=== PATIENT | male | born 1975 | race Caucasian/White ===

== ENCOUNTER 2024-01-24 14:43 | Emergency (ER) | payer BC, SELFPAY ==
[2024-01-24 14:49] VITALS: BP 135/83
[2024-01-24 15:08] LABS: % Basophils 0.7 % (0-2); % Eosinophils 0.3 % (0-6); % Immature Granulocytes 0.3 % (0-0.5); % Lymphocytes 13.2 % (20.5-51.1); % Monocytes 5.2 % (1.7-9.3); % Neutrophils 80.3 % (42.2-75.2); Absolute Lymphocytes 0.8 10^3/uL (1.2-3.4); Absolute Monocytes 0.3 10^3/uL (0.1-0.6); Absolute Neutrophils 4.9 10^3/uL (1.4-6.5); Hematocrit 39.7 % (39.0-52.0); Hemoglobin 13.8 g/dL (13.0-18.0); Mean Corp Hgb Conc. 34.8 g/dL (33.0-37.0); Mean Corpuscular Hgb 32.3 pg (27.0-31.0); Mean Platelet Volume 9.2 fL (7.4-10.4); Nucleated Red Blood Cells % 0 % (-); Platelet Count 200 10^3/uL (130-400); Red Blood Cell Count 4.27 10^6/uL (4.70-6.10); Red Cell Dist. Width 12.4 % (11.5-14.5); White Blood Cell Count 6.1 10^3/uL (4.8-10.8)
[2024-01-24 15:32] LABS: ALT (SGPT) 40 U/L (0-50); AST (SGOT) 45 U/L (17-59); Albumin 4.5 g/dl (3.5-5.0); Alkaline Phosphatase 59 U/L (38-126); Blood Urea Nitrogen 18 mg/dl (9-20); Calcium 9.5 mg/dl (8.4-10.2); Carbon Dioxide 26 mmol/L (22-30); Chloride 104 mmol/L (98-107); Glucose 94 mg/dl (70-99); Lipase 38 U/L (23-300); Total Bilirubin 0.5 mg/dl (0.2-1.3); eGFR > 60.00
[2024-01-24 15:42] LABS: Potassium 4.9 mmol/L (3.5-5.1); Sodium 137 mmol/L (135-145)
[2024-01-24] MEDS: ZOFRAN 4 MG IV (17:14)
[2024-01-24] MEDS: NSS 1000 IV (17:17)
--- NOTE | 2024-01-24 17:17 | ED.GENMED ---
History of Present Illness
General
Chief Complaint: Abdominal Pain
Source: patient
Exam Limitations: none
Time Seen by Provider: 01/24/24 17:13
Travel History
Have you had any contact with someone who has COVID-19?: No
Do you have any symptoms of coronavirus? Fever > 100 degrees, chills, cough, shortness of breath, sore throat, loss of taste or smell, muscle aches, or headache?: No
History of Present Illness
History of Present Illness:
See MDM
Past History
Past History
ED Past Medical History: None
ED Past Surgical History: None
Social History
Tobacco: Non-smoker
Alcohol: Occasional
Phy Exam
Physical Exam
Physical Exam:
See MDM
Course
Orders/Labs/Results
Orders:
Orders
01/24/24 14:54
Complete Blood Count/With Diff Urgent
Comprehensive Metabolic Panel Urgent
Lipase Urgent
01/24/24 17:11
Ondansetron Injectable [Zofran] 4 mg .ROUTE .[facility]
01/24/24 17:13
Ondansetron Injectable [Zofran] 4 mg IV NOW STA
01/24/24 17:16
CT Abd/pelvis W Iv Cont Urgent
Comment:
Reason For Exam: LLQ pain
Urinalysis Reflex To Culture Urgent
Date Specimen was Collected: 01/24/24
Time Specimen was Collected: 17:02
0.9% Sodium Chloride 1000 ml [Nss] 1,000 ml IV BOLUS
0.9% Sodium Chloride 1000 ml [Nss] 1,000 ml IV BOLUS
Ketorolac [Toradol] 30 mg IV NOW STA
Ondansetron Injectable [Zofran] 4 mg IV NOW STA
01/24/24 20:40
LevoFLOXacin [Levaquin] 500 mg PO NOW STA
MetroNIDAZOLE [Flagyl] 500 mg PO NOW STA
Abnormal Lab Results
01/24/24 01/24/24
14:54 17:16
RBC 4.27 L 10^6/uL
(4.70-6.10)
MCH 32.3 H pg
(27.0-31.0)
Absolute Lymphs (auto) 0.8 L 10^3/uL
(1.2-3.4)
Neutrophils % 80.3 H %
(42.2-75.2)
Lymphocytes % 13.2 L %
(20.5-51.1)
Urine Ketones 2+ A
(Negative)
01/24/24 14:54
01/24/24 14:54
Vital Signs
Initial and Last Documented VS:
Initial Vital Signs
Temp Pulse Resp BP Pulse Ox
98.7 F 74 16 135/83 96
01/24/24 14:49 01/24/24 14:49 01/24/24 14:49 01/24/24 14:49 01/24/24 14:49
Last Documented Vital Signs
Temp Pulse Resp BP Pulse Ox
98.7 F 74 16 135/83 100
01/24/24 14:49 01/24/24 14:49 01/24/24 14:49 01/24/24 14:49 01/24/24 17:19
MDM/Problems Addressed
Differential Diagnosis Includes:
HPI and MDM Narrative:
48-year-old male presenting with left abdominal pain. Patient noted the pain soon after eating breakfast earlier today. Since then, the pain has been sharp and intermittent and coming in waves. He denies prior history of kidney stones or
gallstones or diverticulitis. He is nauseous but denies vomiting or diarrhea
On exam, patient does have left lower quadrant tenderness. Will give Toradol for pain and obtain CT to look for evidence of diverticulitis
Physical exam
General: Well appearing and non-toxic
HEENT: protecting airway. Mild dry mucous membranes
Neck: appears supple
CV: No evidence of cyanosis
Resp: No accessory muscle use
Abd: Non-distended. Left lower quadrant tenderness without rebound
Extremities: No deformities
Neuro: alert
Psych: Normal affect
Skin: Intact
Problems Addressed including Acute and Chronic Conditions affecting care:
1. Abdominal pain
Acuity: acute
Prognosis: stable
Details: Will give Toradol for pain and will obtain CT to rule out diverticulitis versus kidney stones
Updates
CT shows evidence of diverticulosis. No obvious diverticulitis but will treat as mild diverticulitis given pain. He is allergic to amoxicillin. Will cover with Levaquin and Flagyl. Discussed follow-up with GI
Differential Diagnosis (but not limited to): Diverticulitis, kidney stone
Testing considered: Abdominal ultrasound
Drug therapy (if applicable): OTC meds, please see d/c instruction regarding Rx drugs
Amount and/or Complexity of Data Reviewed
Clinical info obtained from: Patient
External data reviewed: N/A
Labs I independently reviewed (but not limited to): White blood cell count normal
Radiology: The CT scan was personally and independently reviewed. In addition, official CT report reviewed.
Pulse Ox: not hypoxic
EKG independently reviewed: N/A
Chemical Etch Operator: N/A
Critical Care: N/A
Risk of Complication:
Social Determinants of health: Good social support
Discussed with other providers: N/A
Escalation of Care includes Admit/Obs: After being observed in the Emergency Department, pt stable for discharge.
Occasional wrong word or 'sound a like' substitutions may have occurred due to the inherent limitations of voice recognition software. Read the chart carefully and recognize, using context, where substitutions have occurred.
*Critical Care Note
Total Time (30-74mins, 75-104mins- exclusive of procedures): Not Applicable
ED Attending Note
-
Portions of this chart may have been created with voice recognition software.� Occasional wrong word or��sound alike� substitutions may have occurred due to the inherent limitations of voice recognition software.
Discharge Plan
Departure
Patient Disposition: Home (Routine Discharge)
Date of Disposition: 01/24/24
Time of Disposition: 20:41
Patient with high blood pressure during this ER visit?: Yes
Discharge Problem:
Diverticulitis large intestine
Instructions: Diverticulitis (DC), BLOOD PRESSURE
Prescriptions:
New
metronidazole 500 mg Tablet
500 mg PO TID Qty: 21 0RF
diclofenac potassium 50 mg tablet
50 mg PO BID Qty: 20 0RF
levofloxacin 500 mg Tablet
500 mg PO DAILY Qty: 7 0RF
Referrals:
NONE,* [Active] -
Lesly tOt MD [Active] -
Activity Restrictions/Additional Instructions:
Please return for any worsening symptoms.
You may return at any time if you have further concerns.
Please follow up with your doctor at the first available appointment, preferably this week.
Please make an appointment to see the voice pathologist.
Thank you for choosing [facility].
Interventions
Interventions:
*General Assessment Last Done: 01/24/24 17:19
ED- Fall Risk Assessment Last Done: 01/24/24 17:19
*ED COVID-19 Vaccine History Last Done: 01/24/24 17:19
RQ-Ovlhcd-Ahzknhqcya Assessment Last Done: 01/24/24 17:19
Discharge Date and Time
Print Language: PANAMANIAN
[2024-01-24] MEDS: TORADOL 30 MG IV (17:24)
[2024-01-24 17:48] LABS: Urine Albumin Negative (Neg - Trace); Urine Bilirubin Negative (Negative); Urine Character Clear (Clear); Urine Color Yellow; Urine Glucose Negative (Negative); Urine Ketone 2+ (Negative); Urine Leukocyte Negative (Negative); Urine Nitrite Negative (Negative); Urine Occult Blood Negative (Negative); Urine Specific Gravity 1.025 (<1.030); Urine Urobilinogen Negative (Neg - 1+)
[2024-01-24] MEDS: LEVAQUIN 500 MG PO (20:51)
[2024-01-24] MEDS: FLAGYL 500 MG PO (20:51)
== END 2024-01-24 21:06 | disposition home or self-care (01) ==
LOC: EMR 14:43
PROVIDERS: Emergency Medicine; EMERGENCY PHYSICIAN Student in an Organized Health Care Education/Training Program; FAMILY PHYSICIAN Family Medicine
DX: K57.32 Diverticulitis of large intestine without perforation or abscess without bleeding (principal); R03.0 Elevated blood-pressure reading, without diagnosis of hypertension; Z88.0 Allergy status to penicillin
CPT/HCPCS: 99285; 96374; 96361; 74177; 80053; 81003; 83690; 85025; Q9967